=== PATIENT | female | born 1970 | race Caucasian/White ===

== ENCOUNTER → 2019-10-12 | Outpatient (CLI) | payer MEDICARE, OTHER ==
[~2019-10-12] MED LIST: 24 HOUR ALLER15.8 ML INH; CYMBALTA60 MG PO; HYDROXYZINE HYD50 MG PO; IMITREX100 MG PO; JARDIANCE25 MG PO; LOPRESSOR25 MG PO; METFORMIN HYD1000 MG PO; NABUMETONE750 M1 PO; NEURONTIN600 MG PO; PROAIR HFA8.5 GM INH; SIMVASTATIN40 MG PO; VICTOZA 2-0.6 MG/0.1 SQ; VRAYLAR3 MG PO; ZESTRIL20 MG PO
== END | disposition home or self-care (01) ==
LOC: LAB 09:47
DX: N93.9 Abnormal uterine and vaginal bleeding, unspecified (principal); Z79.899 Other long term (current) drug therapy

== ENCOUNTER → 2019-10-19 | Day surgery (SDC) | payer MEDICARE ==
[2019-10-12 11:13] VITALS: BP 125/72
[~2019-10-19] VITALS: Ht 167.6 cm; Wt 98.4 kg
[2019-10-19 07:03] VITALS: BP 154/82
[2019-10-19 08:45] VITALS: BP 147/82
[2019-10-19 09:00] VITALS: BP 156/90
[2019-10-19 09:15] VITALS: BP 153/88
== END | disposition home or self-care (01) ==
LOC: SDC 10-12 13:15
DX: N93.9 Abnormal uterine and vaginal bleeding, unspecified (principal); I10 Essential (primary) hypertension; E11.9 Type 2 diabetes mellitus without complications; K21.9 Gastro-esophageal reflux disease without esophagitis; F32.9 Major depressive disorder, single episode, unspecified; J45.909 Unspecified asthma, uncomplicated; Z79.899 Other long term (current) drug therapy; Z90.49 Acquired absence of other specified parts of digestive tract; Z98.890 Other specified postprocedural states; Z83.3 Family history of diabetes mellitus; Z82.49 Family history of ischemic heart disease and other diseases of the circulatory system